=== PATIENT | male | born 1975 | race Hispanic/Latino ===

== ENCOUNTER 2017-07-30 11:21 | Emergency (ER) | payer OTHER ==
[2017-07-30 15:18] LABS: Magnesium 2.2 mg/dL (1.8-2.5); Potassium 4.1 mEq/L (3.6-5.0)
[2017-07-30 15:23] LABS: Absolute Monocytes 0.4 K/uL (0.1-1.3); Absolute Neutrophil 6.3 K/uL (1.8-8.0); Basophils % 0.4 % (0-1.3); Eosinophils % 0.3 % (0-4.4); Lymphocytes % 12.7 % (15.3-44.8); MCV 86.6 fL (80-100); MPV 8.8 fL (7.6-11.3); Monocytes % 5.5 % (3.3-12.3); RBC Red Blood Cell Count 5.43 M/uL (4.33-5.43)
--- NOTE | 2017-07-30 15:48 | ER ---
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 Transition of care: patient was not received from another setting of care. 11:37 Method Of Arrival: Ambulatory 11:39 Onset of symptoms was July 30, 2017. Care prior to arrival: None. 11:39 Acuity: EDUIN 3 15:58 Initial Sepsis Screen: Does the patient meet any 2 criteria? No. Patient's initial rk2 sepsis screen is negative. Does the patient have a suspected source of infection? No. Patient's initial sepsis screen is negative. Triage Assessment: 11:39 General: Appears in no apparent distress. uncomfortable, Behavior is calm, cooperative, hj appropriate for age. Pain: Complains of pain in head. Historical: - Allergies: 11:40 No Known Allergies; hj - Home Meds: 11:40 None [Active]; hj - PMHx: 11:40 None; hj - PSHx: 11:40 ankle; Tonsillectomy; hj - Immunization history:: Flu vaccine status is unknown. - Social history:: Smoking status: unknown. Screenin:35 Abuse screen: Denies threats or abuse. Denies injuries from another. Nutritional sg screening: No deficits noted. Tuberculosis screening: No symptoms or risk factors identified. Never had TB. Fall Risk None identified. Assessment: 14:35 General: Appears in no apparent distress. comfortable, well groomed, well developed, sg well nourished, Behavior is calm, cooperative, appropriate for age. Pain: Complains of pain in head Pain currently is 8 out of 10 on a pain scale. Quality of pain is described as throbbing. Neuro: Level of Consciousness is awake, alert, obeys commands, Oriented to person, place, time, situation, [employer] are equal bilaterally Moves all extremities. Full function Speech is normal, Facial symmetry appears normal. Neuro: Reports dizziness, headache in entire frontal area. Cardiovascular: Heart tones S1 S2 present Capillary refill is brisk in bilateral fingers Patient's skin is warm and dry. Chest pain is denied. Respiratory: Airway is patent Respiratory effort is even, unlabored, Respiratory pattern is regular, symmetrical, Breath sounds are clear. GI: Abdomen is round non-distended. : No signs and/or symptoms were reported regarding the genitourinary system. EENT: No signs and/or symptoms were reported regarding the EENT system. Derm: Skin is intact, is healthy with good turgor, Skin is dry, Skin is normal, Skin temperature is warm. Musculoskeletal: No signs and/or symptoms reported regarding the musculoskeletal system. 15:06 Reassessment: xray completed \T\ bedside. rk2 Vital Signs: 11:40 BP 147 / 92; Pulse 104; Resp 18; Temp 98.0(TE); Pulse Ox 97% on R/A; Weight 99.79 kg; hj Height 5 ft. 7 in. (170.18 cm); Pain 2/10; 14:34 BP 154 / 94; Pulse 90; Resp 18; Temp 98.0; Pulse Ox 98% on R/A; iw 15:30 BP 135 / 89; Pulse 93; Resp 17; Pulse Ox 99% on R/A; rk2 11:40 Body Mass Index 34.46 (99.79 kg, 170.18 cm) ED Course: 11:27 Patient arrived in ED. mr 11:39 Triage completed. hj 11:39 Arm band placed on left wrist. hj 13:59 Nirmal Patel MD is Attending Physician. ps1 14:23 Kevin Olivarez, DIONI is Primary Nurse. sg 14:25 Patient has correct armband on for positive identification. Bed in low position. Call sg light in reach. Pulse ox on. NIBP on. 14:35 Initial lab(s) drawn, by me, sent to lab. Inserted saline lock: 20 gauge in left sg antecubital area, using aseptic technique. Blood collected. 15:00 Report given to Andreia WHEATLEY. sg 15:05 XRAY Chest (1 view) Sent. rk2 15:16 EKG done, by electronic security technician. reviewed by Nirmal Patel MD. tc 15:22 X-ray completed. Portable x-ray completed in exam room. Patient tolerated procedure ml well. 15:25 XRAY Chest (1 view) In Process Unspecified. EDMS 15:57 No provider procedures requiring assistance completed. IV discontinued. rk2 16:02 EKG done, by electronic security technician. reviewed by Nirmal Patel MD. Administered Medications: No medications were administered Outcome: 15:47 Discharge ordered by . ps1 15:57 Discharged to home ambulatory. rk2 15:57 Condition: good 15:57 Discharge instructions given to patient. 16:10 Patient left the ED. rk2 Signatures: Dispatcher [employer] EDMS Kevin Olivarez, RN RN Rachel Savage Irene, RN RN iw Chad, Saray ml Adelina Mello, double corner cutter EKG Ttc Macarena Cormier Paulo Garza RN RN Nirmal Lamas MD MD ps1 Andreia Torres RN RN rk2 Corrections: (The following items were deleted from the chart) 11:42 11:39 Acuity: EDUIN 4 hj hj 11:42 11:40 Pulse 104bpm; Resp 18bpm; Pulse Ox 97% RA; Temp 98.0F Temporal; 99.79 kg; Height hj 5 ft. 7 in.; BMI: 34.4; Pain 2/10; hj
--- NOTE | 2017-07-30 15:48 | EDPHYS ---
Physician Documentation [facility] Name: Joaquín Serrano Age: 42 yrs Sex: Male : 1975 Arrival Date: 07/30/2017 Time: 11:27 Bed 24 Private MD: ED Physician Nirmal Patel HPI: 07/30 15:42 This 42 yrs old Male presents to ER via Ambulatory with complaints of ps1 Dizziness, Weakness, High Blood Pressure. 15:42 The patient presents with generalized weakness. Onset: The symptoms/episode ps1 began/occurred this morning. 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 . Modifying factors: The symptoms are alleviated by nothing. Associated signs and symptoms: Pertinent positives: has had flu like symptoms over the last couple of days. patient has been taking OTC medications for sinus congestion. [place] fatigued and noticed his blood pressure was elevated. Came in for evaluation because he wanted to make sure everything was ok. Denies CP, SOB, AP, Urinary complaints. . Historical: - Allergies: 11:40 No Known Allergies; hj - Home Meds: 11:40 None [Active]; hj - PMHx: 11:40 None; hj - PSHx: 11:40 ankle; Tonsillectomy; hj - Immunization history:: Flu vaccine status is unknown. - Social history:: Smoking status: unknown. ROS: 15:42 Constitutional: Negative for fever, chills, and weight loss, Eyes: Negative for injury, ps1 pain, redness, and discharge, Cardiovascular: Negative for chest pain, palpitations, and edema, Respiratory: Negative for shortness of breath, cough, wheezing, and pleuritic chest pain, Abdomen/GI: Negative for abdominal pain, nausea, vomiting, diarrhea, and constipation, Back: Negative for injury and pain, MS/Extremity: Negative for injury and deformity, Skin: Negative for injury, rash, and discoloration, Neuro: Negative for headache, weakness, numbness, tingling, and seizure. 15:42 ENT: Positive for sinus congestion, sore throat. Exam: 15:42 Constitutional: This is a well developed, well nourished patient who is awake, alert, ps1 and in no acute distress. Head/Face: Normocephalic, atraumatic. Eyes: Pupils equal round and reactive to light, extra-ocular motions intact. Lids and lashes normal. Conjunctiva and sclera are non-icteric and not injected. ENT: Nares patent. No nasal discharge, no septal abnormalities noted. Tympanic membranes are normal and external auditory canals are clear. Oropharynx with no redness, swelling, or masses, exudates, or evidence of obstruction, uvula midline. Mucous membranes moist. Chest/axilla: Normal chest wall appearance and motion. Nontender with no deformity. No lesions are appreciated. Cardiovascular: Regular rate and rhythm. No gallops, murmurs, or rubs. Normal PMI, no JVD. No pulse deficits. Respiratory: Lungs have equal breath sounds bilaterally, clear to auscultation and percussion. No rales, rhonchi or wheezes noted. No increased work of breathing, no retractions or nasal flaring. Abdomen/GI: Soft, non-tender, with normal bowel sounds. No distension or tympany. No guarding or rebound. No evidence of tenderness throughout. Skin: Warm, dry with normal turgor. Normal color with no rashes, no lesions, and no evidence of cellulitis. MS/ Extremity: Pulses equal, no cyanosis. Neurovascular intact. Full, normal range of motion. Neuro: Awake and alert, GCS 15, oriented to person, place, time, and situation. Cranial nerves II-XII grossly intact. Sensory grossly intact. Vital Signs: 11:40 BP 147 / 92; Pulse 104; Resp 18; Temp 98.0(TE); Pulse Ox 97% on R/A; Weight 99.79 kg; hj Height 5 ft. 7 in. (170.18 cm); Pain 2/10; 14:34 BP 154 / 94; Pulse 90; Resp 18; Temp 98.0; Pulse Ox 98% on R/A; iw 15:30 BP 135 / 89; Pulse 93; Resp 17; Pulse Ox 99% on R/A; rk2 11:40 Body Mass Index 34.46 (99.79 kg, 170.18 cm) hj MDM: 14:49 Patient medically screened. ps1 15:42 Data reviewed: vital signs, nurses notes, lab test result(s), radiologic studies. ED ps1 course: Pt to get his BP rechecked by primary this Friday at his regular scheduled appointment. Patient feels better and asymptomatic. Stop using OTC medications as they may raise his BP. . 07/30 14:47 Order name: Basic Metabolic Panel ps1 07/30 14:47 Order name: CBC with Diff; Complete Time: 15:39 [facility] 07/30 14:47 Order name: Magnesium ps1 07/30 14:47 Order name: Troponin (emerg Dept Use Only); Complete Time: 15:39 ps1 07/30 14:47 Order name: XRAY Chest (1 view) ps1 07/30 14:47 Order name: EKG; Complete Time: 14:47 [facility] 07/30 14:47 Order name: Cardiac monitoring; Complete Time: 15:05 ps1 07/30 14:47 Order name: EKG - Nurse/Tech; Complete Time: 15:44 [facility] 07/30 14:47 Order name: IV Saline Lock; Complete Time: 14:58 [facility] 07/30 14:47 Order name: Labs collected and sent; Complete Time: 14:58 [facility] 07/30 14:47 Order name: O2 Per Protocol; Complete Time: 14:58 [facility] 07/30 14:47 Order name: O2 Sat Monitoring; Complete Time: 14:58 [facility] 07/30 14:47 Order name: Urine Dipstick-Ancillary (obtain specimen); Complete Time: 15:34 ps1 EC:11 Rate is 92 beats/min. Rhythm is regular. QRS [place] is Normal. MD interval is normal. QRS ps1 interval is normal. QT interval is normal. No Q waves. T waves are Normal. No ST changes noted. Clinical impression: Normal ECG. Interpreted by me. Administered Medications: No medications were administered Disposition: 07/30/17 15:47 Discharged to Home. Impression: Hypertension, Fatigue. - Condition is Stable. - Discharge Instructions: Fatigue, Managing Your High Blood Pressure. - Medication Reconciliation Form, Thank You Letter, Antibiotic Education, Prescription Opioid Use form. - Follow up: Private Physician; When: As needed; Reason: Recheck today's complaints, Continuance of care, Re-evaluation by your physician. Follow up: Emergency Department; When: As needed; Reason: Fever > 102 F, Trouble breathing, Worsening of condition. - Problem is new. - Symptoms have improved. Signatures: Dispatcher [employer] EDMS Paulo Garza RN RN hj Nirmal Patel MD MD ps1 Andreia Torres RN RN rk2
--- NOTE | 2017-07-30 18:05 | RAD REPORT ---
EXAM DESCRIPTION: RAD - Chest Single View - 07/30/2017 3:24 pm CLINICAL HISTORY: Weakness, dizziness, shortness of breath COMPARISON: None. TECHNIQUE: AP portable chest image was obtained 1505 hours . FINDINGS: Lungs are clear. Heart and vasculature are normal. No measurable pleural effusion and no p neumothorax. No gross bony abnormality seen. No acute aortic findings suspected. IMPRESSION: No acute cardiopulmonary process.
--- NOTE | 2017-07-30 22:10 | EKG ---
Test Date: 2017-07-30 Test Time: 15:45:08 Legend Maker: SUZANNE MEASUREMENT RESULTS: Intervals: Rate: 86 MS: 144 QRSD: 82 QT: 368 QTc: 440 [place]: P: 56 MS: 144 QRS: 23 T: 46 INTERPRETIVE STATEMENTS: Normal sinus rhythm Normal ECG Compared to ECG 07/30/2017 15:11:56 Sinus arrhythmia no longer present Electronically Signed On 07-30-17 22:09:39 CDT by Eriberto Jimenez
--- NOTE | 2017-07-30 22:10 | EKG ---
Test Date: 2017-07-30 Test Time: 15:11:56 [facility] Consultant: NEERAJ MEASUREMENT RESULTS: Intervals: Rate: 92 SC: 134 QRSD: 82 QT: 364 QTc: 450 [place]: P: 61 SC: 134 QRS: 30 T: 60 INTERPRETIVE STATEMENTS: Normal sinus rhythm with sinus arrhythmia Normal ECG No previous ECG available for comparison Electronically Signed On 07-30-17 22:09:41 CDT by Eriberto Jimenez
== END 2017-07-30 16:10 | disposition home or self-care (01) ==
LOC: ER 11:21
DX: I10 Essential (primary) hypertension (principal); R53.83 Other fatigue
CPT/HCPCS: 36415; 71045; 80048; 83735; 84484; 85025; 93005; 99284